=== PATIENT | female | born 1995 | race Caucasian/White ===

== ENCOUNTER 2018-12-01 11:27 | Emergency (ER) | payer BC ==
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
[2018-12-01] MEDS ORDERED: FLUORESCEIN SODIUM 1 MG STRIP OP ONE (11:34)
[2018-12-01] MEDS ORDERED: PROPARACAINE 0.5% 15 ML OPHT DROP ONE (11:35)
[2018-12-01] MEDS ORDERED: prednisoLONE ACET 1% 5 ML OPHT.BTL OP ONE (11:43)
[2018-12-01] MEDS ORDERED: IOPAMIDOL (ISOVUE-300) 100 ML BTL ONE (12:21)
[2018-12-01 14:17] VITALS: BP 140/88
== END 2018-12-01 14:16 | disposition home or self-care (01) ==
DX: H05.012 Cellulitis of left orbit (principal); B30.9 Viral conjunctivitis, unspecified; J01.00 Acute maxillary sinusitis, unspecified
CPT/HCPCS: 82435-PO; 82565-PO; 82947-PO; 84132-PO; 84295-PO; 84520-PO; 85014-ER; Q9967